=== PATIENT | male | born 1980 | race African-American/Black ===

== ENCOUNTER 2024-01-08 18:05 | Inpatient (IN) | payer OTHER ==
[2024-01-08 19:21] VITALS: BMI 22.2
[2024-01-08] MEDS ORDERED: BISMUTH SUBSALICYLATE 524 MG/30 ML PO PRN (22:47)
[2024-01-08] MEDS ORDERED: NALOXONE HCL (KLOXXADO) 8 MG SPRAY NS PRN (22:47)
[2024-01-08] MEDS ORDERED: ONDANSETRON *ODT* 4 MG TABLET SL PRN (22:47)
[2024-01-08] MEDS ORDERED: NICOTINE POLACRILEX 2 MG GUM BUC PRN (22:47)
[2024-01-08] MEDS ORDERED: IBUPROFEN 400 MG TABLET (FP) PO PRN (22:47)
[2024-01-08] MEDS ORDERED: guaiFENesin 600 MG TABLET.ER (FP) PO PRN (22:47)
[2024-01-08] MEDS ORDERED: BENZONATATE 200 MG CAPSULE PO PRN (22:47)
[2024-01-08] MEDS ORDERED: NALOXONE HCL 0.4 MG/ML VIAL IM PRN (22:47)
[2024-01-08] MEDS ORDERED: hydrOXYzine PAMOATE 25 MG CAPSULE (FP) PO PRN (22:47)
[2024-01-08] MEDS ORDERED: DICYCLOMINE HCL 10 MG CAPSULE PO PRN (22:47)
[2024-01-08] MEDS ORDERED: ACETAMINOPHEN 325 MG TABLET (FP) PO PRN (22:47)
[2024-01-08] MEDS ORDERED: MAG HYDROX/AL HYDROX/SIMETH 30 ML UNIT-DOSE CUP PO PRN (22:47)
[2024-01-08] MEDS ORDERED: LOPERAMIDE HCL 2 MG CAPSULE PO PRN (22:47)
[2024-01-08] MEDS ORDERED: MAGNESIUM HYDROX 2400MG/30ML ORAL SUSPENSION 30 ML CUP PO PRN (22:47)
[2024-01-08] MEDS ORDERED: BENZOCAINE/MENTHOL (CHLORASEPTIC ) LOZENGE MM PRN (22:47)
[2024-01-08] MEDS ORDERED: IBUPROFEN 600 MG TABLET (FP) PO PRN (22:47)
[2024-01-08] MEDS ORDERED: POLYETHYLENE GLYCOL (HEALTHYLAX) 3350 17 GM PACKET PO PRN (22:47)
[2024-01-08] MEDS ORDERED: cloNIDine HCL 0.1 MG TABLET ONE (23:53)
[2024-01-08] MEDS: cloNIDine HCL 0.1 MG TABLET PO ONE (23:55)
[2024-01-09] MEDS: METHOCARBAMOL 500 MG TABLET PO PRN (00:45)
[2024-01-09] MEDS: cloNIDine HCL 0.1 MG TABLET PO ONE ×2 (06:40→22:37)
[2024-01-09 10:33] LABS: HEMOGLOBIN 13.1 GM/dL (11.7-16.9); MCH 27.9 pg (25.7-33.7); MCHC 32.6 g/dl (32.0-35.9); MEAN CELL VOLUME 85.5 fl (80-96); PLATELET COUNT 225 10^3/uL (134-434); RBC 4.68 M/mm3 (4.00-5.60); RDW 14.4 % (11.9-15.9); WHITE BLOOD COUNT 4.6 K/mm3 (4.0-10.0)
[2024-01-09 10:35] LABS: CHLORIDE 106 mmol/L (98-107); SODIUM 141 mmol/L (136-145)
[2024-01-09 10:36] LABS: ANION GAP 6 mmol/L (4-13); CALCIUM 8.8 mg/dL (8.5-10.1); CO2 29 mmol/L (21-32); GLUCOSE,RANDOM 102 mg/dL (74-106)
[2024-01-09 10:37] LABS: ALBUMIN 3.3 g/dl (3.4-5.0); BLOOD UREA NITROGEN 17.7 mg/dL (7-18)
[2024-01-09 10:40] LABS: SGOT/AST 31 U/L (15-37); SGPT/ALT 27 U/L (13-61)
[2024-01-09 10:41] LABS: BILIRUBIN,TOTAL 0.7 mg/dL (0.2-1); TOT PROT 6.7 g/dl (6.4-8.2)
[2024-01-09 10:43] LABS: ALK PHOS 57 U/L (45-117)
[2024-01-09] MEDS: PRENATAL VITAMINS W/ FOLIC ACID TABLET (FP) PO SCH (10:57)
[2024-01-09] MEDS: MELATONIN 5 MG TABLETS PO SCH (22:36)
[2024-01-09] MEDS: THIAMINE HCL 100 MG TABLET (FP) PO SCH (22:36)
[2024-01-10] MEDS: amLODIPine BESYLATE 5 MG TABLET (FP) PO SCH (15:31)
[2024-01-10] MEDS: hydrOXYzine PAMOATE 25 MG CAPSULE (FP) PO PRN (17:35)
[2024-01-10] MEDS: cloNIDine HCL 0.1 MG TABLET PO ONE (23:05)
[2024-01-11 09:58] VITALS: RESP 16
[2024-01-11] MEDS: levETIRAcetam 250 MG TABLET PO SCH (11:30)
[2024-01-11 13:30] VITALS: BP 166/104; PULSE 77; TEMP 97.7
== END 2024-01-11 13:18 | disposition home or self-care (01) | DRG 774 ==
LOC: YASAS 18:05 → Y6N 23:28
PROVIDERS: ADMIT Allergy & Immunology; ATTEND Surgery
PROC: HZ2ZZZZ Detoxification Services for Substance Abuse Treatment (ICD-10-PCS; principal; 2024-01-08)
DX: F10.230 Alcohol dependence with withdrawal, uncomplicated (principal); F14.20 Cocaine dependence, uncomplicated; F17.210 Nicotine dependence, cigarettes, uncomplicated; G40.909 Epilepsy, unspecified, not intractable, without status epilepticus; I10 Essential (primary) hypertension
CPT/HCPCS: 36415; 80053; 80307; 85027; 86780; 87635; 93005; 93010